=== PATIENT | female | born 1985 | race American Indian/Alaskan Native ===

== ENCOUNTER 2016-12-02 23:08 | Emergency (ER) | payer MEDICARE ==
[2016-12-02 23:57] VITALS: BP 128/83
[2016-12-03 00:03] LABS: Urine Drugs of Abuse Note Disclamer
--- NOTE | 2016-12-03 00:10 | Emergency Department Report ---
HPI - General Time Seen by Provider: 12/02/16 23:22 - HPI HPI: 31-year-old Afro-Tajik female presents the emergency department via police department from her halfway for a mental health evaluation. Patient says that she has been feeling suicidal for the past to 3 weeks. She presents with some cuts to both arms which she said happened yesterday because she was "stressed out." She does admit to thoughts of harming herself and/or ending her life but says she does not have a specific plan for that. She has a history of PTSD, schizoaffective disorder, bipolar disorder and personality disorder. Patient says she is on a couple different meds but cannot tell me what they are at this time. She denies having a primary care doctor or psychiatrist. She denies any homicidal ideations or any visual hallucinations. When asked if she has any auditory hallucinations she says that they are " more like thoughts." ED Past Medical Hx - Past Medical History Previous Medical History?: Yes Hx Hypertension: Yes Hx Diabetes: Yes Hx GERD: Yes (haital hernia and reflux) Hx Seizures: Yes (on depakote) Hx Psychiatric Treatment: Yes (bipolar, schizophrenia) Additional medical history: anemia. fibroids. scoliosis. PSYCHIATRIC - Surgical History Past Surgical History?: Yes Additional Surgical History: Ectopic , left ovary. back surgery - Social History Smoking Status: Smoker, Current Status Unknown Substance Use Type: None - Medications Home Medications: Home Medications Medication Instructions Recorded Confirmed Last Taken Type Divalproex Sodium [Depakote] 500 mg PO BID 12/02/16 12/02/16 Unknown History levETIRAcetam [Keppra TAB] 750 mg PO BID 12/02/16 12/02/16 Unknown History ED Review of Systems ROS: Stated complaint: MH EVAL/SUICIDAL THOUGHTS Other details as noted in HPI Comment: All other systems reviewed and negative Constitutional: denies: chills, fever Eyes: denies: eye pain, eye discharge, vision change ENT: denies: ear pain, throat pain Respiratory: denies: cough, shortness of breath, wheezing Cardiovascular: denies: chest pain, palpitations Gastrointestinal: denies: abdominal pain, nausea, diarrhea Genitourinary: denies: urgency, dysuria, discharge Musculoskeletal: denies: back pain, joint swelling, arthralgia Skin: denies: change in color, pruritus Neurological: denies: headache, weakness, paresthesias Psychiatric: suicidal thoughts. denies: visual hallucinations, homicidal thoughts Physical Exam - Physical Exam Vital Signs: Vital Signs 12/02/16 23:35 Temperature 98.5 F Pulse Rate 84 Respiratory 18 Rate Blood Pressure 128/83 [Left] O2 Sat by Pulse 98 Oximetry Physical Exam: GENERAL: The patient is well-developed well-nourished. HEENT: Normocephalic. Atraumatic. Extraocular motions are intact. Patient has moist mucous membranes. Pupils equal reactive to light bilaterally. NECK: Supple. Trachea is midline. CHEST/LUNGS: Clear to auscultation. There is no respiratory distress noted. HEART/CARDIOVASCULAR: Regular. There is no tachycardia. There is no gallop rub or murmur. ABDOMEN: Abdomen is soft, nontender. Patient has normal bowel sounds. There is no abdominal distention. SKIN: Skin is warm and dry. There are multiple abrasions to the volar forearms bilaterally that shows some excoriations and scabs but no current bleeding and no obvious signs of infection. NEURO: The patient is awake, alert, and oriented. The patient is cooperative. The patient has no focal neurologic deficits. The patient has normal speech. MUSCULOSKELETAL: There is no tenderness or deformity. There is no limitation range of motion. There is no evidence of acute injury. Radial pulses +2 over 4 bilaterally. Cap refill less than 2 seconds. ED Course Vital Signs 12/02/16 23:35 Temperature 98.5 F Pulse Rate 84 Respiratory 18 Rate Blood Pressure 128/83 [Left] O2 Sat by Pulse 98 Oximetry ED Medical Decision Making - Lab Data Result diagrams: 12/02/16 23:52 12/02/16 00:00 - Medical Decision Making 31-year-old female presents to the emergency Department via PD from halfway with complaint of suicidal ideations without a plan. Patient also has multiple abrasions and excoriations the forearms that may not up in her plan for suicide but has been her response to stressors in her life. For both of these reasons, patient will be made a 1013. Her labs are unremarkable other than a positive urine drug screen for perpetuates which may be from medication she takes as opposed to illicit drug consumption. Her vital signs are stable throughout her ED course. Patient appears medically cleared for psychiatric placement and the crisis service has been contacted to assist. - Differential Diagnosis schizoaffective, schizophrenia, PTSD, substance abuse, bipolar Critical Care Time: No Critical care attestation.: If time is entered above; I have spent that time in minutes in the direct care of this critically ill patient, excluding procedure time. ED Disposition Clinical Impression: Suicidal ideation Disposition: DC/TX PSY HOSP/PSY UNIT Is pt being admited?: No Condition: Stable Referrals: PRIMARY CARE, [Primary Care Provider] - 3-5 Days Time of Disposition: 01:21
[2016-12-03 00:11] LABS: Bilirubin,Urine NEG (Negative); Blood,Urine NEG (Negative); Ketones,Urine TR mg/dL (Negative); Leukocyte Esterase,Urine NEG (Negative); Mucus,Urine FEW /HPF; Nitrite,Urine NEG (Negative); Protein,Urine <15 mg/dL mg/dL (Negative); WBC,Urine < 1.0 /HPF (0.0-6.0)
[2016-12-03 00:32] LABS: Basophils % (Auto) 0.5 % (0.0-1.8); Eosinophils % (Auto) 1.3 % (0.0-4.3); Hematocrit 36.7 % (30.3-42.9); Hemoglobin 11.7 gm/dl (10.1-14.3); Mean Corpuscular HGB Conc 32 % (30-34); Mean Corpuscular Volume 78 fl (79-97); Platelet Count 289 K/mm3 (140-440); Red Cell Distribution Width 16.7 % (13.2-15.2); White Blood Count 10.6 K/mm3 (4.5-11.0)
[2016-12-03 00:34] LABS: Mean Corpuscular Hemoglobin 25 pg (28-32)
[2016-12-03] MEDS ORDERED: GEODON IM ONE ×2 (02:54→03:54)
[2016-12-03] MEDS ORDERED: KEPPRA PO SCH (10:00)
[2016-12-03] MEDS ORDERED: NON-FORMULARY (Levetiracetam [Keppra Tab] 750 MG) PO SCH (10:00)
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
== END 2016-12-03 21:21 ==
LOC: ED 23:08
DX: R45.851 Suicidal ideations (principal); I10 Essential (primary) hypertension; E11.9 Type 2 diabetes mellitus without complications; K21.9 Gastro-esophageal reflux disease without esophagitis; F31.9 Bipolar disorder, unspecified; F20.9 Schizophrenia, unspecified; F17.200 Nicotine dependence, unspecified, uncomplicated
CPT/HCPCS: 36415; 80048; 80164; 80307; 81001; 84703; 85025; 96372; 99285; G0480; J3486; 80320